=== PATIENT | female | born 1955 | race African-American/Black ===

== ENCOUNTER 2018-11-07 16:15 | Day surgery (SDC) | payer MEDICARE, OTHER ==
[2018-11-07] VITALS (17 sets, daily range): BP systolic 149–178; BP diastolic 57–72; PULSE 52–74; RESP 16–20
[~2018-11-07 16:15] MED LIST: LIDOCAINE 2% (SDV) 5 ML INJ ONE; PROPOFOL 200 MG INJ ONE
--- NOTE | 2018-11-07 18:11 | PREAC ---
Date/Time of Note Date/Time of Note DATE: 11/07/18 TIME: 18:08 Anesthesia Eval and Record Evaluation Time Pre-Procedure Interview DATE: 11/07/18 TIME: 18:08 Age 62 Sex female NPO: 8 hrs Preoperative diagnosis respiratory failure, pnuemonia Planned procedure bronchoscopy Past Medical History Past Medical History: Includes Cardio: HTN, Dyslipidemia Pulm: COPD, Sleep Apnea, Other (posterior tracheal mass) GI: Obesity Surgery & Anesthesia Issues No known issue Meds Anticoagulation: No Beta Renetta within 24 hr: No Reason Beta Renetta not given: Pt. not on B-Renetta Meds reviewed: Yes Allergies Coded Allergies: Penicillins (Verified Allergy, Unknown, 10/25/18) Allergies Reviewed: Yes Labs/Studies Labs Reviewed: Reviewed by anesthesiologist test: N/A Studies: ECG, CXR Pre-procedure Exam Airway: Adequate mouth opening, Adequate thyromental dist Mallampati: Mallampati III Teeth: Normal Lung: Normal Heart: Normal ASA Physical Status ASA physical status: 3 Emergency: None Planned Anesthetic General/MAC: ETT Planned Pain Management Parenteral pain med Pre-operative Attestations Prior to commencing anesthesia and surgery, the patient was re-evaluated, there was verification of: *The patient's identity *The results of appropriate recent lab work and preoperative vital signs *The above evaluation not changing prior to induction *Anesthetic plan, risk benefits, alternative and complications discussed with patient/family; questions answered; patient/family understands, accepts and wishes to proceed. RAKESH LUTHER Nov 07, 2018 18:11
[2018-11-07] MEDS ORDERED: LIDOCAINE 2% (MDV) 20 ML INJ ONE ×2 (18:22→18:50)
[2018-11-07] MEDS ORDERED: FENTAnyl 50 MCG/ML VIAL ONE (18:52)
--- NOTE | 2018-11-07 19:26 | PAC ---
Date/Time of Note Date/Time of Note DATE: 11/07/18 TIME: 19:26 Post-Anesthesia Notes Post-Anesthesia Note Last documented vital signs temp 98.1, O2 sat 99%, bp 110/78 Activity: WNL Respiratory function: WNL Cardiovascular function: WNL Mental status: Baseline Pain reasonably controlled: Yes Hydration appropriate: Yes Nausea/Vomiting absent: Yes RAKESH LUTHER Nov 07, 2018 19:26
[2018-11-07] MEDS ORDERED: MIDAZOLAM 1 MG/ML 2 ML INJ IV PRN (19:30)
[2018-11-07] MEDS ORDERED: hydrALAzine 20 MG INJ IV PRN (19:30)
[2018-11-07] MEDS ORDERED: ONDANSETRON 4 MG INJ IV PRN (19:30)
[2018-11-07] MEDS ORDERED: FENTAnyl 50 MCG/ML VIAL IV PRN ×2 (19:30)
[2018-11-07] MEDS ORDERED: DIPHENHYDRAMINE 50 MG INJ IV PRN (19:30)
[2018-11-07] MEDS ORDERED: EPHEDrine SULFATE 50 MG/5 ML SYG IV PRN (19:30)
[2018-11-07] MEDS ORDERED: MEPERIDINE 25 MG INJ IV PRN (19:30)
[2018-11-07] MEDS ORDERED: LABETALOL HCL 20MG INJ IV PRN (19:30)
[2018-11-07] MEDS ORDERED: ALBUTEROL 0.083% (NEB) 2.5 MG/3 ML AMP HHN PRN (19:30)
[2018-11-07] MEDS ORDERED: hydrALAzine 20 MG INJ ONE (19:35)
== END 2018-11-07 20:30 | disposition home or self-care (01) ==
LOC: SDS 16:15
PROVIDERS: ATTEND Thoracic Surgery (Cardiothoracic Vascular Surgery)
DX: J98.59 Other diseases of mediastinum, not elsewhere classified (principal); I10 Essential (primary) hypertension; E78.5 Hyperlipidemia, unspecified; J44.9 Chronic obstructive pulmonary disease, unspecified; G47.30 Sleep apnea, unspecified
CPT/HCPCS: 31625; 88307; 94002; J0360; J3010